=== PATIENT | male | born 1960 | race Caucasian/White ===

== ENCOUNTER → 2016-05-28 | Outpatient (CLI) | payer BC ==
[~2016-05-28] MED LIST: IOHEXOL 300 MG/ML 50 ML VIAL. IV ONE
[2016-05-28 10:25] LABS: CREATININE 1.1 mg/dL (0.7-1.3)
--- NOTE | 2016-05-28 15:24 | RAD ---
CTA of the abdomen, pelvis and lower extremities with contrast, 05/28/2016: History: Diabetes, peripheral vascular disease Multidetector CT imaging was performed from the level of the lower abdomen down through the feet following an IV bolus injection of iodinated contrast material. Multiplanar reconstructions were produced including 3-D MIP images of the major arteries. There is mild atherosclerotic plaquing of the distal abdominal aorta, iliac and common femoral arteries without evidence of high-grade stenosis. There are scattered plaques in the superficial femoral arteries. The left superficial femoral artery is occluded at the distal thigh level. There is reconstitution of the proximal popliteal artery on the left via collateral circulation. The left popliteal artery demonstrates mild atherosclerotic plaquing without high-grade stenosis. There is three-vessel run off in the left lower leg. There are mild to moderate scattered atherosclerotic plaques. The left dorsalis pedis artery is patent. On the right, there are mild scattered plaques in the femoral and popliteal artery without evidence of high-grade stenosis. In the right lower leg the proximal posterior tibial artery is poorly defined and appears to be occluded. It is reconstituted distally via collateral circulation. The right anterior tibial artery is patent down to the level of the ankle. It is poorly delineated distal to this point. The right peroneal artery is small but appears to be patent. Incidental CT findings include the presence of moderate sigmoid diverticulosis. There are mild degenerative changes at both hip joints. IMPRESSION: 1. Mild aortoiliac and right femoral-popliteal atherosclerotic plaquing without evidence of high-grade stenosis. 2. Occlusion of the distal left superficial femoral artery with reconstitution via collateral circulation at the proximal popliteal level. 3. Occlusion of the right posterior tibial artery in the lower leg. 4. Mild to moderate scattered atherosclerotic plaquing in the lower leg arteries bilaterally. PQRS Compliance Statement: One or more of the following individualized dose reduction techniques were utilized for this examination: 1. Automated exposure control 2. Adjustment of the mA and/or kV according to patient size 3. Use of iterative reconstruction technique
== END | disposition home or self-care (01) ==
LOC: CT 09:38
PROVIDERS: ATTEND Internal Medicine
DX: E11.9 Type 2 diabetes mellitus without complications (principal); I73.89 Other specified peripheral vascular diseases; I70.8 Atherosclerosis of other arteries; M16.0 Bilateral primary osteoarthritis of hip; I77.1 Stricture of artery; K57.30 Diverticulosis of large intestine without perforation or abscess without bleeding
CPT/HCPCS: 75635; 82565; 84520; Q9967

== ENCOUNTER → 2016-06-06 | Outpatient (CLI) | payer BC ==
[2016-06-06 11:17] LABS: BASO # 0.1 x10^3/uL (0.0-0.2); BASO % 1 % (0-3); EOS # 0.3 x10^3/uL (0.0-0.7); EOS % 3 % (0-3); HEMATOCRIT 50.1 % (39.0-53.0); HEMOGLOBIN 16.7 g/dL (13.0-17.5); LYMPH # 2.6 x10^3/uL (1.0-4.8); LYMPH % 27 % (24-48); MEAN CORPUSCULAR HEMOGLOBIN 31 pg (25-35); MEAN CORPUSCULAR HGB CONC 33 g/dL (31-37); MEAN CORPUSCULAR VOLUME 94 fL (79-100); MONO # 0.8 x10^3/uL (0.0-1.1); MONO % 9 % (0-9); NEUT # 5.7 x10^3uL (1.8-7.7); NEUT % 61 % (31-73); PLATELET COUNT 345 x10^3/uL (140-400); RED BLOOD COUNT 5.34 x10^6/uL (4.30-5.70); RED CELL DISTRIBUTION WIDTH 13.6 % (11.5-14.5); WHITE BLOOD COUNT 9.5 x10^3/uL (4.0-11.0)
[2016-06-06 11:20] LABS: CREATININE 1.1 mg/dL (0.7-1.3); MAGNESIUM 1.9 mg/dL (1.8-2.4); POTASSIUM 4.3 mmol/L (3.5-5.1)
== END | disposition home or self-care (01) ==
LOC: LAB 09:31
PROVIDERS: ATTEND Nurse Practitioner
DX: Z01.812 Encounter for preprocedural laboratory examination (principal); I10 Essential (primary) hypertension; E11.9 Type 2 diabetes mellitus without complications; I73.9 Peripheral vascular disease, unspecified
CPT/HCPCS: 36415; 80048; 83735; 85027; 85610; 85730